=== PATIENT | female | born 1975 | race Caucasian/White ===

== ENCOUNTER 2020-07-02 05:23 | Emergency (ER) | payer BC ==
[2020-07-02 05:43] LABS: RED BLOOD COUNT 4.2 M/UL (4.00-5.10); WHITE BLOOD COUNT 8.9 K/UL (4.5-11.0)
[2020-07-02 06:01] LABS: BUN/CREATININE RATIO 15 (0-10)
== END 2020-07-02 08:55 | disposition home or self-care (01) ==
LOC: ER1 05:23
PROVIDERS: Emergency Medicine
DX: R51.9 Headache, unspecified (principal); I10 Essential (primary) hypertension; F17.290 Nicotine dependence, other tobacco product, uncomplicated
CPT/HCPCS: 70496; 70498; 80053; 85025; 85610; 85730; 96374; 96375; 99284; J0780; J1200; J2550; Q9967

== ENCOUNTER → 2020-09-07 | Outpatient (CLI) | payer BC | LOC: EROP 08:34 | DX: Z20.822 Contact with and (suspected) exposure to COVID-19 (principal) | CPT/HCPCS: U0002 ==